=== PATIENT | female | born 1990 | race Caucasian/White ===

== ENCOUNTER 2016-12-18 18:06 | Emergency (ER) | payer OTHER ==
[~2016-12-18] VITALS: Ht 167.6 cm; Wt 84.4 kg
[2016-12-18 18:07] VITALS: BP 114/56
== END 2016-12-18 19:32 | disposition home or self-care (01) ==
LOC: M ED 19:15
DX: J06.9 Acute upper respiratory infection, unspecified (principal); H92.03 Otalgia, bilateral